=== PATIENT | female | born 1935 | race Two or more races ===

== ENCOUNTER 2020-06-12 09:35 | Emergency (ER) | payer OTHER ==
[~2020-06-12] VITALS: Ht 170.2 cm; Wt 72.6 kg
[2020-06-12] MEDS ORDERED: PLAVIX75 MG PO ×2 (10:07→10:09)
[2020-06-12] MEDS ORDERED: ARICEPT5 MG PO (10:08)
[2020-06-12] MEDS ORDERED: SYNTHROID137 MCG PO (10:08)
[2020-06-12] MEDS ORDERED: SIMVASTATIN5 MG PO (10:09)
[2020-06-12] MEDS ORDERED: VISTARIL50 MG PO (13:02)
== END 2020-06-12 13:30 | disposition home or self-care (01) ==
LOC: ER 09:35
DX: R07.89 Other chest pain (principal); R42 Dizziness and giddiness; F41.8 Other specified anxiety disorders; Z03.818 Encounter for observation for suspected exposure to other biological agents ruled out